=== PATIENT | male | born 1975 | race African-American/Black ===

== ENCOUNTER 2021-05-16 13:08 | Day surgery (SDC) | payer OTHER ==
[2021-05-16] MEDS ORDERED: LIDOCAINE HCL 2% 100 MG/5 ML IJ ONE (13:09)
[2021-05-16] MEDS ORDERED: Decadron 4 MG INJ IV ONE (13:09)
[2021-05-16] MEDS ORDERED: DIPRIVAN 200 MG/20 ML IV ONE ×2 (15:41→15:54)
[2021-05-16] MEDS ORDERED: Lactated Ringers 1,000 ML IV ONE (15:51)
--- NOTE | 2021-05-16 16:54 | XRAY ---
Indication: Left C2-C4 MBB. Intraoperative fluoroscopy provided for 24 seconds. Single digital spot image submitted for interpretation demonstrates posterior needle tips projecting over the expected left C2-C4 nerve roots. Correlate with intraoperative findings/report.
--- NOTE | 2021-05-16 17:10 | XRAY ---
24 seconds fluoroscopy time in surgery for left C2-C4 MBB.
== END 2021-05-16 16:12 | disposition home or self-care (01) ==
LOC: SDC-PAIN 13:08
PROVIDERS: ATTEND Psychiatry & Neurology Pain Medicine
DX: M47.812 Spondylosis without myelopathy or radiculopathy, cervical region (principal); Z79.899 Other long term (current) drug therapy
CPT/HCPCS: 64490; 64491; 72040; 77002; J1100; J2704

== ENCOUNTER 2021-06-21 11:49 | Day surgery (SDC) | payer OTHER ==
[2021-06-21] MEDS ORDERED: LIDOCAINE HCL 2% 100 MG/5 ML IJ ONE (11:50)
[2021-06-21] MEDS ORDERED: Decadron 4 MG INJ IV ONE (11:50)
[2021-06-21] MEDS ORDERED: DIPRIVAN 200 MG/20 ML IV ONE (14:01)
[2021-06-21] MEDS ORDERED: Lactated Ringers 1,000 ML IV ONE (14:06)
--- NOTE | 2021-06-21 15:17 | XRAY ---
Indication: Right C2-C4 MBB Intraoperative fluoroscopy provided for 22 seconds. 2 digital spot images submitted for interpretation demonstrates posterior needle tips projecting over the expected right C2-C4 nerve roots. Correlate with intraoperative findings/report.
--- NOTE | 2021-06-21 15:21 | XRAY ---
22 seconds fluoroscopy time in surgery for right C2-C4 MBB.
== END 2021-06-21 14:30 | disposition home or self-care (01) ==
LOC: SDC-PAIN 11:49
PROVIDERS: ATTEND Psychiatry & Neurology Pain Medicine
DX: M47.812 Spondylosis without myelopathy or radiculopathy, cervical region (principal); Z79.899 Other long term (current) drug therapy
CPT/HCPCS: 64490; 64491; 72040; 77002; J1100; J2704

== ENCOUNTER 2022-05-22 10:35 | Day surgery (SDC) | payer OTHER ==
[2022-05-22] MEDS ORDERED: BUPIVACAINE 0.5% VIAL IJ ONE (10:36)
[2022-05-22] MEDS ORDERED: DIPRIVAN 200 MG/20 ML IV ONE ×2 (11:48→11:55)
--- NOTE | 2022-05-22 13:43 | XRAY ---
Indication: Right C2-C4 MBB. Intraoperative fluoroscopy provided for 26 seconds. 6 digital spot image submitted for interpretation demonstrates posterior needle tips projecting over the expected right C2-C4 nerve roots. Correlate with intraoperative findings/report.
[2022-05-22] MEDS ORDERED: Lactated Ringers 1,000 ML IV ONE (14:24)
--- NOTE | 2022-05-22 14:45 | XRAY ---
26 seconds of fluoroscopy was used in surgery for a right C2-C4 MBB.
== END 2022-05-22 12:25 | disposition home or self-care (01) ==
LOC: SDC-PAIN 10:35
PROVIDERS: ATTEND Psychiatry & Neurology Pain Medicine
DX: M47.812 Spondylosis without myelopathy or radiculopathy, cervical region (principal); Z79.899 Other long term (current) drug therapy
CPT/HCPCS: 64490; 64491; 72040; 77002; J2704

== ENCOUNTER 2022-09-26 10:53 | Day surgery (SDC) | payer OTHER ==
[2022-09-26] MEDS ORDERED: BUPIVACAINE 0.5% VIAL IJ ONE (10:54)
[2022-09-26] MEDS ORDERED: DIPRIVAN 200 MG/20 ML IV ONE ×2 (12:46→12:58)
--- NOTE | 2022-09-26 14:22 | XRAY ---
Indication: Left C2-C4 MBB. Intraoperative fluoroscopy provided for 18 seconds. 2 digital spot images submitted for interpretation demonstrates posterior needle tips projecting over the expected left C2-C4 nerve roots. Correlate with intraoperative findings/report.
--- NOTE | 2022-09-26 14:42 | XRAY ---
18 seconds of fluoroscopy was used in surgery for a left C2-C4 MBB.
[2022-09-26] MEDS ORDERED: Lactated Ringers 1,000 ML IV ONE (15:34)
== END 2022-09-26 13:18 | disposition home or self-care (01) ==
LOC: SDC-PAIN 10:53
PROVIDERS: ATTEND Psychiatry & Neurology Pain Medicine
DX: M47.812 Spondylosis without myelopathy or radiculopathy, cervical region (principal); Z79.899 Other long term (current) drug therapy
CPT/HCPCS: 64490; 64491; 72040; 77002; J2704

== ENCOUNTER 2022-12-04 11:12 | Day surgery (SDC) | payer OTHER ==
[2022-12-04] MEDS ORDERED: Decadron 4 MG INJ IV ONE (11:13)
[2022-12-04] MEDS ORDERED: LIDOCAINE HCL 1% 50 MG/5 ML VL PF IJ ONE (11:13)
[2022-12-04] MEDS ORDERED: BUPIVACAINE 0.5% VIAL IJ ONE (11:13)
[2022-12-04] MEDS ORDERED: Versed 2 MG/2 ML Injection ONE (12:03)
[2022-12-04] MEDS ORDERED: DIPRIVAN 200 MG/20 ML IV ONE ×2 (12:03→12:13)
[2022-12-04] MEDS ORDERED: Lactated Ringers 1,000 ML IV ONE (13:21)
--- NOTE | 2022-12-04 14:35 | XRAY ---
Indication: Right C2-C4 RFA. Intraoperative fluoroscopy provided for 1 minute 2 seconds. 2 digital spot images submitted for interpretation demonstrates posterior needle tips projecting over the expected right C2-C4 nerve roots. Correlate with intraoperative findings/report.
--- NOTE | 2022-12-04 14:37 | XRAY ---
One minute and 2 seconds of fluoroscopy was used in surgery for a right C2-C4 RFA.
== END 2022-12-04 13:04 | disposition home or self-care (01) ==
LOC: SDC-PAIN 11:12
PROVIDERS: ATTEND Psychiatry & Neurology Pain Medicine
DX: M47.812 Spondylosis without myelopathy or radiculopathy, cervical region (principal); Z79.899 Other long term (current) drug therapy
CPT/HCPCS: 64633; 64634; 72040; 77002; J1100; J2001; J2250; J2704